=== PATIENT | female | born 2000 | race Caucasian/White ===

== ENCOUNTER → 2024-08-20 07:38 | Outpatient (REF) | payer BC, OTHER, SELFPAY ==
[2024-08-20 08:55] LABS: % Basophils 0.9 % (0-2); % Eosinophils 2.7 % (0-6); % Immature Granulocytes 0.3 % (0-0.5); % Lymphocytes 45.8 % (20.5-51.1); % Monocytes 6.5 % (1.7-9.3); % Neutrophils 43.8 % (42.2-75.2); Absolute Basophils 0.1 10^3/uL (0-0.2); Absolute Eosinophils 0.2 10^3/uL (0-0.7); Absolute Lymphocytes 2.7 10^3/uL (1.2-3.4); Absolute Monocytes 0.4 10^3/uL (0.1-0.6); Absolute Neutrophils 2.6 10^3/uL (1.4-6.5); Hematocrit 41.1 % (37.0-47.0); Hemoglobin 14.2 g/dL (12.0-16.0); Mean Corp Hgb Conc. 34.5 g/dL (33.0-37.0); Mean Corpuscular Hgb 30.4 pg (27.0-31.0); Mean Platelet Volume 8.9 fL (7.4-10.4); Nucleated Red Blood Cells % 0 %; Platelet Count 296 10^3/uL (130-400); Red Blood Cell Count 4.67 10^6/uL (4.20-5.40); Red Cell Dist. Width 12.6 % (11.5-14.5); White Blood Cell Count 5.9 10^3/uL (4.8-10.8)
[2024-08-20 09:25] LABS: ALT (SGPT) 16 U/L (0-35); AST (SGOT) 17 U/L (14-36); Albumin 4.4 g/dl (3.5-5.0); Alkaline Phosphatase 51 U/L (38-126); Blood Urea Nitrogen 15 mg/dl (7-17); Calcium 9.6 mg/dl (8.4-10.2); Carbon Dioxide 20 mmol/L (22-30); Chloride 111 mmol/L (98-107); Glucose 93 mg/dl (70-99); HDL Cholesterol 48 mg/dl; LDL Cholesterol, Calculated 96 mg/dl; Potassium 4.4 mmol/L (3.5-5.1); Sodium 142 mmol/L (135-145); Total Bilirubin 0.6 mg/dl (0.2-1.3); Total Cholesterol 172 mg/dl (50-199); Total Protein 7.3 g/dl (6.3-8.2); Triglyceride 143 mg/dl (10-149); Very Low Density Lipoprotein 28 mg/dl (0-30); eGFR > 60.00
[2024-08-20 09:51] LABS: TSH Reflex To Free T4 1.52 uIU/ml (0.47-4.68)
[2024-08-21 18:06] LABS: Thyroglobulin Antibodies <1.5 IU/mL (0.0-4.0); Thyroid Peroxidase Ab (TPO) 2.3 IU/mL (0.0-9.0)
== END ==
LOC: REG 07:38
PROVIDERS: ATTENDING PHYSICIAN Physician Assistant Medical
DX: Z76.89 Persons encountering health services in other specified circumstances (principal); Z68.37 Body mass index [BMI] 37.0-37.9, adult; F33.1 Major depressive disorder, recurrent, moderate; F41.9 Anxiety disorder, unspecified; K29.50 Unspecified chronic gastritis without bleeding; R21 Rash and other nonspecific skin eruption; Z83.49 Family history of other endocrine, nutritional and metabolic diseases; Z91.018 Allergy to other foods
CPT/HCPCS: 36415; 80053; 80061; 84443; 85025; 86376; 86800

== ENCOUNTER → 2024-09-11 11:14 | Outpatient (REF) | payer BC, OTHER, SELFPAY ==
[2024-09-11 16:56] LABS: Vitamin B12 536 pg/ml (239-931)
[2024-09-14 02:02] LABS: Thyroglobulin Antibodies <1.5 IU/mL (0.0-4.0)
== END ==
LOC: CLAB 11:14
PROVIDERS: ATTENDING PHYSICIAN Physician Assistant Medical
DX: R53.83 Other fatigue (principal); Z83.49 Family history of other endocrine, nutritional and metabolic diseases
CPT/HCPCS: 36415; 82607; 86376; 86800